=== PATIENT | male | born 1985 | race Caucasian/White ===

== ENCOUNTER 2025-06-27 07:33 | Outpatient (CLI) | payer BC, SELFPAY | END 2025-06-27 07:34 | disposition home or self-care (01) | PROVIDERS: PCP Family Medicine; Visit Provider Family Medicine | DX: I10 Essential (primary) hypertension (principal) | CPT/HCPCS: 80053; 80061 ==

== ENCOUNTER 2025-08-25 07:02 | Outpatient (CLI) | payer BC, SELFPAY ==
--- NOTE | 2025-08-25 07:15 | MR_ITS ---
Patient: GIORGIO HAWKINS Facility:?[facility] Patient ID:?[id number] Site Patient ID:?[id number]. Site :?[id number] Study:?MRI-Head Angio W/O-08/25/2025 9:10:54 AM Ordering Physician:?Dimitry Sandoval Final Report: EXAMINATION: MRA HEAD DATE: 08/25/2025 HISTORY: Patient with polycystic kidney disease. TECHNIQUE: 3D TOF MRA of the head was performed. COMPARISON: None. FINDINGS: There is either a 1.5mm infundibulum or aneurysm in the proximal right A2 segment. The intracranial segments of the right internal carotid artery are normal. The anterior communicating artery is seen. The visualized portions of the right middle and anterior cerebral arteries are normal. The intracranial segments of the left internal carotid artery are normal. The visualized portions of the left middle and anterior cerebral arteries are normal. The left vertebral artery is dominant. The visualized intracranial portions of the vertebral arteries are normal. The basilar artery is normal. The right posterior cerebral artery is normal. The left posterior cerebral artery is normal. IMPRESSION: Either a 1.5mm infundibulum or aneurysm in the proximal right A2 segment. Further evaluation with a CT angiogram of the head is recommended to exclude an aneurysm. Dictated by: Pema Duong MD @ 08/25/2025 09:18:29 Signed by:?Pema Duong MD @08/25/2025 9:18:29 AM (Electronic Signature)
--- NOTE | 2025-08-25 08:00 | CRLHL7_ITS ---
For Patients: As a result of the Century Cures Act, medical imaging exams and procedure reports are released immediately into your electronic medical record. You may view this report before your referring provider. If you have questions, please contact your health care provider. INDICATION: Polycystic kidney, calculated total kidney volume TECHNIQUE: 1.5 T MRI of the abdomen performed with pre and postcontrast T1 weighted imaging; T2 weighted imaging; in and out of phase imaging; diffusion weighted imaging. 20 mL Dotarem IV COMPARISON: None FINDINGS: Lungs: The lung bases are clear. No pleural or pericardial effusion. Liver: Homogeneous liver parenchyma. Numerous hepatic cysts, the largest in the right posterior liver measuring up to 4.7 cm (/). No definite suspicious hepatic lesion. Biliary tree and gallbladder: No intra or extrahepatic biliary dilation. Fluid-filled gallbladder without stones. Spleen: Unremarkable Pancreas: Normal pancreatic parenchyma. No pancreatic masses. No pancreatic duct dilation. Adrenal glands: Unremarkable. Kidneys and ureters: Numerous bilateral simple and proteinaceous renal cysts. The right kidney measures 8.1 x 8.7 x 8.7 cm (cc by transverse x AP; 321 mL volume). The left kidney measures 9.9 x 7.6 x 6.8 cm (cc x transverse by AP; 268 mL volume). The largest cyst on the right measures up to 8 cm arising off the inferior pole (/).. The largest cyst on the left measures 3.9 cm arising off the inferior pole (/). No suspicious renal lesions are appreciated. GI tract: No evidence of obstruction or inflammation. Vasculature: The IVC and aorta are patent. No abdominal aortic aneurysm. Lymph nodes: No lymphadenopathy. Abdominal wall: Small fat containing umbilical hernia Bones: Bone marrow signal is within normal limits. IMPRESSION: 1. Numerous bilateral simple and proteinaceous/hemorrhagic renal cysts. The right kidney measures 321 mL volume and the left kidney measures 268 mL volume. No suspicious renal lesions. 2. Numerous hepatic cysts. No suspicious hepatic lesions. Dictated by Angie Macias MD @ 08/25/2025 1:33:25 PM (Electronically Signed)
== END 2025-08-25 07:03 | disposition home or self-care (01) ==
PROVIDERS: PCP Family Medicine; Visit Provider Internal Medicine Nephrology
DX: N28.1 Cyst of kidney, acquired (principal); K76.89 Other specified diseases of liver
CPT/HCPCS: 70544; 74183; A9575

== ENCOUNTER 2025-08-29 16:04 | Outpatient (CLI) | payer BC, SELFPAY | END 2025-08-29 16:05 | disposition home or self-care (01) | LOC: NFLDREF 09-01 12:34 | PROVIDERS: PCP Family Medicine; Referring Provider Family Medicine; Visit Provider Internal Medicine Nephrology | DX: Q61.3 Polycystic kidney, unspecified (principal) | CPT/HCPCS: 80048 ==